=== PATIENT | female | born 1995 | race African-American/Black ===

== ENCOUNTER 2017-07-14 16:01 | Emergency (ER) | payer BC ==
[~2017-07-14] VITALS: Ht 162.6 cm; Wt 50.4 kg
[2017-07-14] MEDS ORDERED: BACTRIM DS TAB1 EACH PO (16:21)
[2017-07-14] MEDS ORDERED: IBUPROFEN 600600 M1 PO (16:23)
== END 2017-07-14 16:34 | disposition home or self-care (01) ==
LOC: ER 16:01
DX: L02.415 Cutaneous abscess of right lower limb (principal)

== ENCOUNTER 2017-07-17 11:22 | Emergency (ER) | payer BC ==
[~2017-07-17] VITALS: Ht 162.6 cm; Wt 51.3 kg
[~2017-07-17 11:22] MED LIST: BACTRIM DS TAB1 EACH PO; IBUPROFEN 600600 M1 PO
== END 2017-07-17 13:48 | disposition home or self-care (01) ==
LOC: ER 11:22
DX: L02.415 Cutaneous abscess of right lower limb (principal)

== ENCOUNTER 2020-10-11 11:22 | Emergency (ER) | payer BC ==
[~2020-10-11] VITALS: Ht 162.6 cm; Wt 56.7 kg
[2020-10-11 12:19] LABS: URINE BILIRUBIN NEGATIVE (Negative); URINE BLOOD NEGATIVE (Negative); URINE CLARITY SL CLOUDY; URINE COLOR YELLOW; URINE GLUCOSE-RANDOM* NEGATIVE (Negative); URINE KETONES NEGATIVE (Negative); URINE LEUKOCYTES-REFLEX NEGATIVE (Negative); URINE NITRITE-REFLEX NEGATIVE (Negative); URINE PROTEIN (DIPSTICK) NEGATIVE (Negative); URINE SPECIFIC GRAVITY >= 1.030 (1.005-1.035); URINE UROBILINOGEN 0.2 E.U./dl (0.2-1.0)
[2020-10-11 12:26] LABS: ABSOLUTE NEUTROPHILS 7.2 thou/uL (1.4-8.2); BASOPHILS 0.1 % (0.0-2.0); EOSINOPHILS 0.3 % (0.0-3.0); HEMATOCRIT 44.6 % (37.0-47.0); HEMOGLOBIN 14.7 gm/dL (12.0-15.0); LYMPHOCYTES 4.1 % (24.0-44.0); MCH 29.9 pg (26.0-34.0); MCHC 32.9 g/dL (28.0-37.0); MCV 90.8 fL (80.0-100.0); MONOCYTES 4.6 % (1.0-8.0); POLYS 90.9 % (36.0-66.0); RBC 4.91 mil/uL (4.20-5.00); RDW 14.1 % (10.5-14.5); WBC 7.9 thou/uL (4.0-11.0)
[2020-10-11 12:41] LABS: ANION GAP 10 mmol/L (7-16); BUN 11 mg/dL (7-18); CALCIUM 8.7 mg/dL (8.5-10.1); CHLORIDE 103 mmol/L (98-107); CO2 25 mmol/L (21-32); CREATININE 0.7 mg/dL (0.6-1.0); GLUCOSE 100 mg/dL (74-106); POTASSIUM 4.4 mmol/L (3.5-5.1); SODIUM 138 mmol/L (136-145)
[2020-10-11 12:45] LABS: ALBUMIN 3.7 g/dL (3.4-5.0); DIRECT BILIRUBIN < 0.1 mg/dL (<0.1-0.2); LIPASE 97 U/L (73-393); SGOT 24 U/L (15-37); SGPT 19 U/L (14-59); TOTAL BILIRUBIN 0.5 mg/dL (0.2-1.0); TOTAL PROTEIN 7.9 g/dL (6.4-8.2)
[2020-10-11] MEDS ORDERED: ONDANSETRON HCL4 M2 PO (12:45)
[2020-10-11 13:05] LABS: PLATELET COUNT 187 thou/uL (150-400)
[2020-10-11 13:11] VITALS: BP 131/74
== END 2020-10-11 13:11 | disposition home or self-care (01) ==
LOC: ER 11:22
PROVIDERS: Nurse Practitioner
DX: R19.7 Diarrhea, unspecified (principal); R11.0 Nausea

== ENCOUNTER 2021-07-30 14:50 | Emergency (ER) | payer BC ==
[~2021-07-30] VITALS: Ht 162.6 cm; Wt 59.0 kg
[~2021-07-30 14:50] MED LIST changes: +ONDANSETRON HCL4 M2 PO
[2021-07-30 15:00] VITALS: BP 128/70
== END 2021-07-30 18:24 | disposition home or self-care (01) ==
LOC: ER 14:50
PROVIDERS: Emergency Medicine
DX: R05.9 Cough, unspecified (principal); Z20.822 Contact with and (suspected) exposure to COVID-19